=== PATIENT | female | born 1990 | race Caucasian/White ===

== ENCOUNTER 2016-07-08 05:00 | Emergency (ER) | payer OTHER ==
--- NOTE | 2016-07-11 00:34 | ER ---
ADMIT: 07/08/2016 RM/LOC: ER [facility] MR#: [id number] [address] [id number] WILFRID[facility] WE[facility]STER [address] [place] [id number] Emergency Room Report SEX: F AGE: 25 : 1990 DATE: 07/08/2016 ADDENDUM: TIME: [address] Newberry's T-sheet for complete H and P. HISTORY OF PRESENT ILLNESS: Briefly, the patient came in with cough, short of breath. I am following up on her chest CT. CT showed no obvious PE. She had been given DuoNeb. She has had Solu-Medrol, magnesium, she was feeling much better. I gave her 2 puffs with an MDI and we sent her home with teaching with that. Zithromax 500 p.o., she is ready for discharge. ASSESSMENT: 1. Bronchitis. 2. Reactive airways. PLAN: Z-Andre, albuterol, return if worse. Follow up with Dr. Dickson this week. Nestor Silva MD/ luis JOB #: [id number] CC: Jamie Philip MD, Attending Physician Burak Dickson MD, Family Physician
== END 2016-07-08 08:15 | disposition home or self-care (01) ==
LOC: ER 05:00
DX: J45.909 Unspecified asthma, uncomplicated (principal); Z88.8 Allergy status to other drugs, medicaments and biological substances